=== PATIENT | female | born 1960 | race Caucasian/White ===

== ENCOUNTER 2025-01-01 08:53 | Inpatient (IN) | payer MEDICARE, OTHER ==
[~2025-01-01] VITALS: Ht 170.2 cm; Wt 79.4 kg
[2025-01-01] MEDS ORDERED: OXYMETAZOLINE HCL NASAL SPRAY 30 ML BOTTLE NS ONE (12:42)
[2025-01-01] MEDS ORDERED: VANCOMYCIN 1 GM VIAL ONE (12:42)
[2025-01-01] MEDS ORDERED: dexaMETHasone SOD PHOSPHATE 2 ML ONE (12:42)
[2025-01-01] MEDS ORDERED: LIDOCAINE 2%-EPI 1:100,000 30 ML VIAL ONE (12:42)
[2025-01-01] MEDS ORDERED: ACETAMINOPHEN 325 MG TABLET PO PRN (15:30)
[2025-01-01] MEDS ORDERED: ONDANSETRON HCL/PF 4 MG/2 ML VIAL IV PRN (15:30)
[2025-01-01] MEDS ORDERED: HYDROMORPHONE 1 MG/1 ML DISP.SYRIN IV PRN (15:30)
[2025-01-01] MEDS: IV NS 0.9% 1,000 ML IV PRN (16:09)
[2025-01-02] MEDS ORDERED: VANCOMYCIN 1 GM in IV D5W 250ml IV SCH
== END 2025-01-01 18:35 | disposition left against medical advice (07) | DRG 141 ==
LOC: DS 08:53 → MED 15:48
PROC: 0NUV07Z Supplement Left Mandible with Autologous Tissue Substitute, Open Approach (ICD-10-PCS; 2025-01-01)
PROC: 0N5V0ZZ Destruction of Left Mandible, Open Approach (ICD-10-PCS; 2025-01-01)
PROC: 0NSV04Z Reposition Left Mandible with Internal Fixation Device, Open Approach (ICD-10-PCS; principal; 2025-01-01 12:30)
DX: S02.609A Fracture of mandible, unspecified, initial encounter for closed fracture (principal); M87.9 Osteonecrosis, unspecified; M27.2 Inflammatory conditions of jaws; E03.9 Hypothyroidism, unspecified; I10 Essential (primary) hypertension; X58.XXXA Exposure to other specified factors, initial encounter; Y92.9 Unspecified place or not applicable; Z88.6 Allergy status to analgesic agent; F17.200 Nicotine dependence, unspecified, uncomplicated; M27.40 Unspecified cyst of jaw; D16.5 Benign neoplasm of lower jaw bone
CPT/HCPCS: 88305-TC; 88311-TC; 88312-TC; A4223; C1713; G0378; J0690; J1100; J2704; J3370; J3490; J7030; J7060

== ENCOUNTER 2025-06-12 06:33 | Inpatient (IN) | payer MEDICARE, OTHER ==
[~2025-06-12] VITALS: Ht 170.2 cm; Wt 83.5 kg
[2025-06-12] MEDS ORDERED: OXYMETAZOLINE HCL NASAL SPRAY 30 ML BOTTLE NS ONE (07:03)
[2025-06-12] MEDS ORDERED: VANCOMYCIN 1 GM VIAL ONE (07:03)
[2025-06-12] MEDS ORDERED: ANESTHESIA TRAY IN PYXIS 1 EA TRAY MC ONE (07:03)
[2025-06-12] MEDS ORDERED: dexaMETHasone SOD PHOSPHATE 2 ML ONE (07:03)
[2025-06-12] MEDS ORDERED: LIDOCAINE 2%-EPI 1:100,000 30 ML VIAL ONE (07:03)
[2025-06-12] MEDS ORDERED: FENTANYL PF 250MCG/5ML AMPUL ONE (07:04)
[2025-06-12] MEDS ORDERED: ROCURONIUM BROMIDE 50 MG/5 ML ONE (07:05)
[2025-06-12] MEDS ORDERED: LABETALOL HCL IV 100MG VIAL ONE (08:24)
[2025-06-12] MEDS ORDERED: ONDANSETRON HCL/PF 4 MG/2 ML VIAL IVP PRN ×2 (10:00→12:00)
[2025-06-12] MEDS ORDERED: IV NS 0.9% 1,000 ML IV PRN (10:00)
[2025-06-12] MEDS ORDERED: ACETAMINOPHEN 325 MG TABLET PO PRN ×2 (10:00→12:00)
[2025-06-12] MEDS ORDERED: HYDROMORPHONE 1 MG/1 ML DISP.SYRIN IV PRN (10:00)
[2025-06-12 11:00] VITALS: BP 102/66; TEMP 98.3; O2SAT 97
[2025-06-12 11:07] VITALS: BP 102/66; TEMP 98.3; O2SAT 97
[2025-06-12] MEDS ORDERED: MAGNESIUM HYDROXIDE 30 ML UDC PO PRN (12:00)
[2025-06-12] MEDS ORDERED: MAG HYDROX/AL HYDROX/SIMETH 30 ML UDC PO PRN (12:00)
[2025-06-12] MEDS ORDERED: VANCOMYCIN 1 GM in IV D5W 250ml IV SCH (19:00)
[2025-06-13] MEDS ORDERED: PANTOPRAZOLE 40 MG TABLET.DR PO SCH (07:30)
== END 2025-06-12 14:00 | disposition left against medical advice (07) | DRG 908 ==
LOC: DS 06:33 → MED 09:59
PROVIDERS: ADMIT Nurse Practitioner Family; ATTEND Nurse Practitioner Family
PROC: 0NBR0ZZ Excision of Maxilla, Open Approach (ICD-10-PCS; 2025-06-12)
PROC: 0NSV04Z Reposition Left Mandible with Internal Fixation Device, Open Approach (ICD-10-PCS; 2025-06-12)
PROC: 0NSR04Z Reposition Maxilla with Internal Fixation Device, Open Approach (ICD-10-PCS; 2025-06-12)
PROC: 0NUV07Z Supplement Left Mandible with Autologous Tissue Substitute, Open Approach (ICD-10-PCS; 2025-06-12)
PROC: 0NUR07Z Supplement Maxilla with Autologous Tissue Substitute, Open Approach (ICD-10-PCS; 2025-06-12)
PROC: 09UQ07Z Supplement Right Maxillary Sinus with Autologous Tissue Substitute, Open Approach (ICD-10-PCS; 2025-06-12)
PROC: 0NPW07Z Removal of Autologous Tissue Substitute from Facial Bone, Open Approach (ICD-10-PCS; 2025-06-12)
PROC: 0NPW04Z Removal of Internal Fixation Device from Facial Bone, Open Approach (ICD-10-PCS; 2025-06-12)
PROC: 0NBV0ZZ Excision of Left Mandible, Open Approach (ICD-10-PCS; principal; 2025-06-12 07:30)
DX: T86.831 Bone graft failure (principal); S02.40CK Maxillary fracture, right side, subsequent encounter for fracture with nonunion; E03.9 Hypothyroidism, unspecified; I10 Essential (primary) hypertension; E66.9 Obesity, unspecified; S02.609K Fracture of mandible, unspecified, subsequent encounter for fracture with nonunion; Y83.8 Other surgical procedures as the cause of abnormal reaction of the patient, or of later complication, without mention of misadventure at the time of the procedure; Y92.9 Unspecified place or not applicable; F17.200 Nicotine dependence, unspecified, uncomplicated; Z88.5 Allergy status to narcotic agent; Z68.28 Body mass index [BMI] 28.0-28.9, adult; X58.XXXD Exposure to other specified factors, subsequent encounter
CPT/HCPCS: 88300-TC; 88305-TC; 88311-TC; A4217; A4338; C1713; G0378; J0461; J0690; J1100; J1171; J2704; J3010; J3373; J3490; J7030; J7060